=== PATIENT | male | born 1985 | race Caucasian/White ===

== ENCOUNTER 2018-05-10 12:35 | Emergency (ER) | payer OTHER ==
--- NOTE | 2018-05-10 14:26 | ED Physician Documentation ---
PD HPI OPHTHO - Stated complaint Stated Complaint: TOOL VS LT EYE - Chief complaint Chief Complaint: Heent - History obtained from History obtained from: Patient - History of Present Illness Timing - onset: How many hours ago (3) Location: Left Associated symptoms: Photophobia. No: Decreased vision Contributing factors: Blunt trauma Similar symptoms before: Has not had sx before - Additional information Additional information: The patient is a 32-year-old [employer] [place] male who presents with pain in his left eye. He was using a speed handle when the tool got out of control and hit him in the left eye about 3 hours prior to arrival. He complains of ph otosensitivity. He denies any loss of visual acuity. He does not wear corrective lenses. Review of Systems Eyes: reports: Photophobia, Irritation. denies: Loss of vision, Decreased vision, Discharge Nose: denies: Congestion GI: denies: Nausea, Vomiting Neurologic: denies: Headache PD PAST MEDICAL HISTORY - Past Medical History Endocrine/Autoimmune: None - Present Medications Home Medications: Ambulatory Orders Medication Instructions Recorded Confirmed No Known Home Medications 05/10/18 05/10/18 - Allergies Allergies/Adverse Reactions: Allergies Allergy/AdvReac Type Severity Reaction Status Date / Time No Known Drug Allergies Allergy Verified 05/10/18 12:52 PD ED PE NORMAL - Vitals Vital signs reviewed: Yes - General General: Alert and oriented X 3, Well developed/nourished - HEENT HEENT: PERRL, EOMI - Respiratory Respiratory: No respiratory distress - Neuro Neuro: Alert and oriented X 3, Normal speech PD ED PE EXPANDED - Eyes Eyes: Visual acuity - see nn (20/20 in the left eye.), PERRL, Normal accommodation, EOMI, Left eye, Eyelid injury (There is ecchymosis along the margin of the left upper eyelid, with associated tenderness to palpation.), Eyelid swelling (Very mild swelling of the left upper eyelid.), No eyelid FB (everted), Nl conjunctiva/sclera, Normal corneas, Anterior chambers clear, Normal fundi. No: Conj/sclera FB, Subconj hemorrhage, Corneal FB, Corneal abrasion, Fluorescein uptake Results - Vitals Vitals: Oxygen O2 Source Room air PD MEDICAL DECISION MAKING - ED course Complexity details: considered differential, d/w patient, d/w family ED course: The patient's presentation is most consistent with contusion to the left upper eyelid. There is no evidence of injury to the globe or cornea which was examined by slit lamp using fluorescein stain. I discussed with the patient and his the expected course of injury, symptomatic treatment and outpatient follow-up, as well as potentially worrisome signs or symptoms that should prompt reevaluation in the emergency department. Departure - Departure Disposition: 01 Home, Self Care Clinical Impression: Contusion of left eyelid Qualifiers: Encounter type: initial encounter Qualified Code(s): S00.12XA - Contusion of left eyelid and periocular area, initial encounter Condition: Stable Instructions: ED Contusion Eye Follow-Up: RICHA Lim [Provider Group] Comments: Apply ice pack to your eye intermittently for the next 24-48 hours. You can use Tylenol or ibuprofen as needed for discomfort. Follow-up with your primary physician if not improving within 2-3 days. Return to the emergency department if you develop increasing pain or swelling of your eye or deteriorating vision. Discharge Date/Time: 05/10/18 14:35
[2018-05-10 14:35] VITALS: BP 115/73
== END 2018-05-10 14:35 | disposition home or self-care (01) ==
LOC: ED 12:35
DX: S00.12XA Contusion of left eyelid and periocular area, initial encounter (principal); W20.8XXA Other cause of strike by thrown, projected or falling object, initial encounter; W27.8XXA Contact with other nonpowered hand tool, initial encounter
CPT/HCPCS: 99283